=== PATIENT | female | born 1955 | race Caucasian/White ===

== ENCOUNTER 2017-09-20 08:09 | Outpatient (CLI) | payer BC | END 2017-09-20 20:31 | disposition home or self-care (01) | LOC: SMA 08:09 | PROVIDERS: ATTEND Obstetrics & Gynecology Gynecology | DX: Z12.31 Encounter for screening mammogram for malignant neoplasm of breast (principal) | CPT/HCPCS: 77067 ==

== ENCOUNTER 2018-12-26 12:36 | Outpatient (CLI) | payer BC | END 2018-12-26 19:54 | disposition home or self-care (01) | LOC: SMA 12:36 | PROVIDERS: ATTEND General Practice | DX: Z12.31 Encounter for screening mammogram for malignant neoplasm of breast (principal) | CPT/HCPCS: 77067 ==

== ENCOUNTER 2020-08-31 11:09 | Outpatient (CLI) | payer BC | END 2020-08-31 20:42 | disposition home or self-care (01) | LOC: SMA 11:09 | PROVIDERS: ATTEND Obstetrics & Gynecology Gynecology | DX: Z12.31 Encounter for screening mammogram for malignant neoplasm of breast (principal); N64.89 Other specified disorders of breast | CPT/HCPCS: 77067 ==